=== PATIENT | male | born 1990 | race Caucasian/White ===

== ENCOUNTER 2024-09-04 18:22 | Emergency (ER) | payer OTHER, SELFPAY ==
[2024-09-04 18:29] VITALS: BP 151/98; BMI 27.2
--- NOTE | 2024-09-04 18:55 | EDRN ---
per crisis staff, the pt is going to kill himself if he doesn't get to [place] soon to use
--- NOTE | 2024-09-04 18:59 | ED.GENMED ---
History of Present Illness
General
Chief Complaint: Crisis Evaluation
Source: patient, ambulance crew and police
Time Seen by Provider: 09/04/24 18:46
History of Present Illness
History of Present Illness:
34-year-old male presenting to the emergency department after 302 was filed by family. Patient was reportedly aggressive towards police and EMS which is why he was brought with police. Patient stating he has no idea why 302 was filed but per 302
that was filed patient reportedly expressed that he would kill himself if family did not go to [place] to obtain drugs. Patient admits to using crack earlier this morning. No complaints at this time
Past History
Past History
ED Past Medical History: Psychiatric
ED Past Surgical History: None
Social History
Tobacco: Smoker
Alcohol: Occasional
Drug: Other (PCP)
Personal: Single
Living: with family (Resides with his uncle)
Employment: Not employed
Family History
Family History: Other (Noncontributory)
Review of Systems
Review of Systems
All Other Systems: ROS reviewed and negative except as documented in HPI and ROS
Phy Exam
Physical Exam
Physical Exam:
GENERAL: Alert , in no apparent distress, Unkempt, malodorous
EYE: conjunctiva clear
Head: Normocephalic atraumatic
NECK: Supple,
ENT: mmm.
LUNGS: no acute respiratory distress
NEUROLOGICAL: Alert and oriented
SKIN: Warm and dry, skin intact.
MUSCULOSKELETAL: well perfused.
PSYCH: Normal and appropriate interaction.
Scores
Heart Failure Risk
Heart Failure Risk Score: Not Applicable
Heart Score for Chest Pain Patients
STEMI patient?: Not applicable
Withdrawal Assessment of Alcohol
Withdrawal Assessment Completed?: Not applicable
Course
Orders/Labs/Results
Orders:
Orders
09/04/24 18:47
1:1 Observation - Suicide/ Violent Behavior As Directed
Crisis Consult Urgent
Reason for Consult: 302
Vital Signs
Initial and Last Documented VS:
Initial Vital Signs
Temp Pulse Resp BP Pulse Ox
97.4 F 74 22 151/98 97
09/04/24 18:29 09/04/24 18:29 09/04/24 18:29 09/04/24 18:29 09/04/24 18:29
Last Documented Vital Signs
Temp Pulse Resp BP Pulse Ox
97.4 F 74 22 151/98 97
09/04/24 18:29 09/04/24 18:29 09/04/24 18:29 09/04/24 18:29 09/04/24 18:29
MDM/Problems Addressed
Differential Diagnosis Includes:
Substance abuse, psychosis, no concern for any emergent physical pathologies
MDM/Problems Addressed:
34-year-old male presenting to the emergency department after 302 was filed by family. Patient calm and cooperative. No acute distress. Awaiting telepsych evaluation.
*Pulse Oximetry
Patient hypoxic: no
*Critical Care Note
Total Time (30-74mins, 75-104mins- exclusive of procedures): Not Applicable
Data Reviewed
Review of Other/Old Records Reveals: Records
Source: patient, records, ambulance crew and police
Patient Management
Escalation/DeEscalation of care consider admission/obs:
302 upheld. Crisis attempting to place. Patient remains stable
ED Attending Note
-
Portions of this chart may have been created with voice recognition software.� Occasional wrong word or��sound alike� substitutions may have occurred due to the inherent limitations of voice recognition software.
Discharge Plan
Departure
Patient Disposition: Psych Facility
Date of Disposition: 09/04/24
Time of Disposition: 21:50
Patient with high blood pressure during this ER visit?: Yes
Discharge Problem:
Substance abuse
Prescriptions:
No Action
Unobtainable
0
Referrals:
UNKNOWN - PT NOT,INTERVIEWE [Family Provider] -
Interventions
Interventions:
*Risk Screen - Suicide Last Done: 09/04/24 18:29
*General Assessment Last Done: 09/04/24 18:29
*Neglect/Abuse Screening Last Done: 09/04/24 18:29
ED- Fall Risk Assessment Last Done: 09/04/24 18:29
*ED COVID-19 Vaccine History Last Done: 09/04/24 18:29
ED-Psychological Assessment Last Done: 09/04/24 18:29
Discharge Date and Time
Print Language: FRISIAN
[2024-09-05 07:51] VITALS: BP 136/71
--- NOTE | 2024-09-05 07:52 | EDRN ---
the pt was received from previous plant operator/shift supervisor RN, the pt was sleeping in bed in the lowest position, side rails up x1, HOB slightly elevated, no s/s of distress, the pt woke up when this RN entered the pts room, the pt was calm, pleasant, and
cooperative, the pt was agreeable to allowing this RN to obtain vital signs, VS WNL, the pt has no c/o pain, no c/o SOB, no c/o chest pain, the pt denies needing anything at this time, one to one observation maintained, mental health security
specialist outside of the pts room, will continue to monitor the pt closely
--- NOTE | 2024-09-05 09:12 | EDRN ---
Acute Care has arrived to transport the pt to [facility], maye RN, and security at the pts bedside, the pt is calm, and cooperative, Shorty from crisis called Jennifer to give report
== END 2024-09-05 09:13 ==
LOC: EMR 18:22
PROVIDERS: EMERGENCY PHYSICIAN Emergency Medicine
DX: F25.0 Schizoaffective disorder, bipolar type (principal); F17.200 Nicotine dependence, unspecified, uncomplicated
CPT/HCPCS: 99285

== ENCOUNTER 2025-01-01 10:05 | Emergency (ER) | payer OTHER, SELFPAY ==
[2025-01-01 10:07] VITALS: BP 121/77
--- NOTE | 2025-01-01 10:23 | ED.GENMED ---
History of Present Illness
General
Chief Complaint: Crisis Evaluation
Time Seen by Provider: 01/01/25 10:14
History of Present Illness
History of Present Illness:
34-year-old male presents the emergency department for evaluation of hallucinations associated with substance abuse. He admits to crack cocaine use most recently 2 to 3 days ago. Distant use of PCP. Denies SI or HI. Arrives with a wrapper caser
from [facility] [place], they are interested in dual program placement for this patient. He denies any hallucinations at present
Past History
Past History
ED Past Medical History: Psychiatric
ED Past Surgical History: None
Social History
Tobacco: Smoker
Alcohol: Occasional
Drug: Other (PCP)
Personal: Single
Living: with family (Resides with his uncle)
Employment: Not employed
Family History
Family History: Other (Noncontributory)
Review of Systems
Review of Systems
Allergies reviewed?: Yes
All Other Systems: ROS reviewed and negative except as documented in HPI and ROS
Phy Exam
Physical Exam
Physical Exam:
GEN: Well appearing, NAD, WDWN
HEENT: Oral mucosa moist, no scleral icterus
Cardiac: Regular rate
Lung: No respiratory distress, no tachypnea
MSK: No gross deformity or injuries
Skin: Good color, no pallor or jaundice, no rashes
Neuro: AO x3, moves all extremities freely
Psych: Pacing, anxious, unable to sit still, does not appear to be responding to internal stimuli
Course
Orders/Labs/Results
Orders:
Orders
01/01/25 10:23
Lorazepam [Ativan] 1 mg PO NOW STA
01/01/25 10:28
Crisis Consult Urgent
Reason for Consult: hallucinations, depression
Comment: wants dual program
01/01/25 11:21
Complete Blood Count/No Diff Urgent
Comprehensive Metabolic Panel Urgent
Depakane Urgent
Fentanyl, Urine Urgent
Urine Drug Abuse Screen Urgent
Date Specimen was Collected: 01/01/25
Time Specimen was Collected: 11:18
Abnormal Lab Results
01/01/25
11:21
WBC 11.0 H 10^3/uL
(4.8-10.8)
Creatinine 0.6 L mg/dL
(0.7-1.3)
Valproic Acid < 10.0 L ug/ml
(50.0-120.0)
U Benzodiazepines Scrn Positive H
(Negative)
Urine Cocaine Screen Positive H
(Negative)
01/01/25 11:21
01/01/25 11:21
Vital Signs
Initial and Last Documented VS:
Initial Vital Signs
Temp Pulse Resp BP Pulse Ox
98.4 F 92 20 121/77 98
01/01/25 10:07 01/01/25 10:07 01/01/25 10:07 01/01/25 10:07 01/01/25 10:07
Last Documented Vital Signs
Temp Pulse Resp BP Pulse Ox
98.4 F 84 18 134/85 98
01/01/25 10:07 01/01/25 13:52 01/01/25 13:52 01/01/25 13:52 01/01/25 13:52
MDM/Problems Addressed
MDM/Problems Addressed:
34-year-old male presents with complaints of substance withdrawal and hallucinations. Seen by crisis, will sign voluntary paperwork for inpatient psychiatric admission
*Critical Care Note
Total Time (30-74mins, 75-104mins- exclusive of procedures): Not Applicable
ED Attending Note
-
Portions of this chart may have been created with voice recognition software.� Occasional wrong word or��sound alike� substitutions may have occurred due to the inherent limitations of voice recognition software.
Discharge Plan
Departure
Patient Disposition: Psych Facility
Date of Disposition: 01/01/25
Time of Disposition: 13:23
Discharge Problem:
Polysubstance abuse, Depression
Prescriptions:
No Action
No Current Medications
0
Referrals:
UNKNOWN,NO INTERVIEW [Family Provider] -
Interventions
Interventions:
*Risk Screen - Suicide Last Done: 01/01/25 10:05
*General Assessment Last Done: 01/01/25 10:07
*Neglect/Abuse Screening Last Done: 01/01/25 10:07
ED- Fall Risk Assessment Last Done: 01/01/25 11:01
*ED COVID-19 Vaccine History Last Done: 01/01/25 10:22
*Nursing Disposition Last Done: 01/01/25 15:52
ED-Psychological Assessment Last Done: 01/01/25 10:22
Discharge Date and Time
Print Language: ROMANIAN
[2025-01-01] MEDS: ATIVAN 1 MG PO (11:23)
[2025-01-01 11:54] LABS: Hematocrit 48.8 % (39.0-52.0); Hemoglobin 16.2 g/dL (13.0-18.0); Mean Corp Hgb Conc. 33.2 g/dL (33.0-37.0); Mean Corpuscular Hgb 29.3 pg (27.0-31.0); Mean Corpuscular Volume 88.2 fL (80.0-94.0); Mean Platelet Volume 9.8 fL (7.4-10.4); Platelet Count 291 10^3/uL (130-400); Red Blood Cell Count 5.53 10^6/uL (4.70-6.10); Red Cell Dist. Width 12.8 % (11.5-14.5)
[2025-01-01 12:15] LABS: ALT (SGPT) 20 U/L (0-50); AST (SGOT) 18 U/L (17-59); Albumin 4.6 g/dl (3.5-5.0); Alkaline Phosphatase 71 U/L (38-126); Blood Urea Nitrogen 13 mg/dl (9-20); Carbon Dioxide 28 mmol/L (22-30); Chloride 103 mmol/L (98-107); Glucose 97 mg/dl (70-99); Potassium 4.5 mmol/L (3.5-5.1); Sodium 139 mmol/L (135-145); Total Bilirubin 0.7 mg/dl (0.2-1.3); Total Protein 7.6 g/dl (6.3-8.2); eGFR > 60.00
[2025-01-01 12:20] LABS: Depakane < 10.0 ug/ml (50.0-120.0)
[2025-01-01 12:24] LABS: Amphetamines Negative (Negative); Barbiturates Negative (Negative); Benzodiazepines Positive (Negative); Buprenorphine Negative (Negative); Cocaine Positive (Negative); Marijuana Negative (Negative); Methadone Negative (Negative); Methamphetamines Negative (Negative); Opiates Negative (Negative); Phencyclidine Negative (Negative); Tricyclic Antidepressants Negative (Negative)
[2025-01-01 12:47] LABS: Fentanyl, Urine Negative (Negative)
[2025-01-01 13:52] VITALS: BP 134/85
== END 2025-01-01 15:52 ==
LOC: EMR 10:05
PROVIDERS: Physician Assistant; EMERGENCY PHYSICIAN Emergency Medicine
DX: F19.10 Other psychoactive substance abuse, uncomplicated (principal); F32.A Depression, unspecified; F17.200 Nicotine dependence, unspecified, uncomplicated
CPT/HCPCS: 99285; 80053; 80164; 80306; 80307; 85027